=== PATIENT | female | born 1990 | race Two or more races ===

== ENCOUNTER 2020-05-11 12:57 | Emergency (ER) | payer MEDICAID ==
[~2020-05-11] VITALS: Ht 165.1 cm; Wt 86.0 kg
[2020-05-11] MEDS ORDERED: ONDANSETRON HCL 4MG/2ML INJ IV STA (14:02)
[2020-05-11] MEDS ORDERED: SODIUM CHLORIDE 0.9% 1,000 ML IV ONE (14:02)
[2020-05-11] MEDS ORDERED: MORPHINE SULFATE 4 MG/ML CPJ (NOT FOR IM USE) IV ONE (14:30)
[2020-05-11 14:41] LABS: BASOPHILS % 0.5 % (0.0-2.0); EOSINOPHILS % 0.9 % (0.0-5.0); HEMATOCRIT. 40.6 % (36.0-48.0); HEMOGLOBIN. 13.9 g/dL (12.0-16.0); LYMPHOCYTES % 26.5 % (20.0-50.0); MEAN CORPUSCULAR HEMOGLOBIN 32.9 pg (28.0-32.0); MEAN PLATELET VOLUME 8.3 fl (7.4-10.4); MONOCYTES % 7.5 % (2.0-8.0); NEUTROPHILS % 64.6 % (40.0-76.0); PLATELET 284 x1000/uL (130-400); RED BLOOD CELL COUNT 4.23 mill/uL (4.2-5.4); RED CELL DISTRIBUTION WIDTH 13.7 % (11.6-14.6)
[2020-05-11 14:49] LABS: PROTHROMBIN TIME 10.7 sec (9.6-11.0)
[2020-05-11 14:55] LABS: CHLORIDE 108 mEq/L (98-107)
[2020-05-11 15:00] LABS: HCG SCREEN NEGATIVE
[2020-05-11 16:10] VITALS: BP 136/92
== END 2020-05-11 17:38 | disposition home or self-care (01) ==
LOC: ER 12:57
DX: R10.31 Right lower quadrant pain (principal); R11.2 Nausea with vomiting, unspecified; R03.0 Elevated blood-pressure reading, without diagnosis of hypertension
CPT/HCPCS: 36415; 74176; 80053; 83690; 84703; 85025; 85610; 96374; 96375; 99284; J2270; J2405; J7030